=== PATIENT | male | born 1990 | race Caucasian/White ===

== ENCOUNTER 2017-11-04 11:58 | Emergency (ER) | payer BC ==
[~2017-11-04] VITALS: Ht 188 cm; Wt 91.0 kg
[2017-11-04 12:01] VITALS: TEMP 36.4; Ht 188 cm; Wt 91.0 kg
[2017-11-04] MEDS ORDERED: HYDROCODONE/ACETAMIN 5/325MG TAB PO STA (12:18)
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
[2017-11-04] MEDS ORDERED: HYDR-5688 PO (13:07)
[2017-11-04 13:19] VITALS: BP 168/98; PULSE 77; O2SAT 99
== END 2017-11-04 13:19 | disposition home or self-care (01) ==
LOC: C.EDB 11:59 → C.EDD 13:19
DX: S82.61XA Displaced fracture of lateral malleolus of right fibula, initial encounter for closed fracture (principal); S82.51XA Displaced fracture of medial malleolus of right tibia, initial encounter for closed fracture; V18.0XXA Pedal cycle driver injured in noncollision transport accident in nontraffic accident, initial encounter; Y93.55 Activity, bike riding; Y92.838 Other recreation area as the place of occurrence of the external cause